=== PATIENT | female | born 1955 | race Caucasian/White ===

== ENCOUNTER 2022-10-09 07:34 | Observation (INO) | payer MEDICARE, OTHER ==
[2022-10-09 08:35] LABS: Hemoglobin 15.9 g/dL (12.0-16.0); Mean Corpuscular Hemoglobin 31.2 pg (27.0-31.0); Mean Corpuscular Volume 91.8 fl (78.0-98.0); Mean Platelet Volume 9.8 fL (7.4-10.4); Platelet Count 131 10x3/uL (130-400); RBC Distribution Width 12.2 % (11.5-14.5); White Blood Cell (WBC) Count 6.4 10x3/uL (4.8-10.8)
[2022-10-09 08:53] LABS: ALT (SGPT) 32 U/L (8-55); AST (SGOT) 22 U/L (5-34); Albumin 4.2 g/dL (3.4-4.8); Alkaline Phosphatase 100 U/L (40-110); Anion Gap 18 mmol/L (10-20); BUN (Urea Nitrogen) 14 mg/dL (9.8-20.1); Bilirubin, Total 0.4 mg/dL (0.2-1.2); Calc. Creatinine Clearance 0 mL/min (70-130); Calcium 9.7 mg/dL (7.8-10.44); Carbon Dioxide 22 mmol/L (23-31); Chloride 107 mmol/L (98-107); Estimated GFR 75; Glucose 126 mg/dL (80-115); Potassium 4.3 mmol/L (3.5-5.1); Protein, Total 7.2 g/dL (5.8-8.1); Sodium 143 mmol/L (136-145)
[2022-10-09] MEDS ORDERED: Meclizine HCl 25 MG TAB ONE (08:58)
[2022-10-09] MEDS ORDERED: Promethazine 25 MG TAB ONE (08:58)
[2022-10-09 09:16] LABS: Band 1 % (5-11); Eosinophils 4 % (0-10); Lymphocytes 39 % (21-51); MDiff Complete? YES; Monocytes 5 % (0-10); Neutrophil 45 % (42-75); RBC Morphology Normal; Reactive Lymphocytes 5 % (0-10)
[2022-10-09 11:19] LABS: Bilirubin Negative (Negative); Blood, Urine Negative (Negative); Clarity Clear (Clear); Glucose, Urine (Dipstick) Normal (Negative); Ketone, Urine Negative (Negative); Leukocyte 75 Leu/uL (Negative); Nitrite Negative (Negative); Protein, Urine (Dipstick) Negative (Neg-Trace); RBC/HPF 0-3 HPF (0-3); Specific Gravity, Urine 1.011 (1.002-1.036); Urobilinogen Normal mg/dL (Less than 2)
[2022-10-09 11:21] LABS: Bacteria/HPF 1+ HPF (None Seen)
[2022-10-09] MEDS ORDERED: Acetaminophen 325 MG TAB PO PRN (11:51)
[2022-10-09] MEDS ORDERED: Ondansetron PF 4 MG/2 ML Vial IVP PRN (11:51)
[2022-10-09] MEDS ORDERED: Ondansetron ODT 4 MG TAB SL PRN (11:51)
[2022-10-09 15:46] LABS: SARS-CoV-2 NAA Rapid Test Not Detected (NotDetected)
[2022-10-09 17:00] VITALS: BMI 37.5
[2022-10-09] MEDS ORDERED: Senokot S 8.6-50 MG TAB PO PRN (18:35)
[2022-10-09] MEDS ORDERED: Lorazepam 2 MG/ML VIAL SLOW IVP PRN (18:51)
[2022-10-09] MEDS: Meclizine HCl 12.5 MG TAB PO PRN (21:15)
[2022-10-09] MEDS ORDERED: Lisinopril 2.5 MG TAB PO SCH (22:45)
[2022-10-09] MEDS ORDERED: Ibuprofen 200 MG TAB PO SCH (22:45)
[2022-10-09] MEDS ORDERED: Loratadine 10 MG TAB PO SCH (22:45)
[2022-10-10 05:54] LABS: #Basophils 0.1 thou/uL (0.0-0.2); #Eosinphils 0.1 thou/uL (0.0-0.7); #Lymphocytes 2.4 thou/uL (1.20-3.40); #Monocytes 0.6 thou/uL (0.11-0.59); #Neutrophils 3.5 thou/uL (1.40-6.50); %Basophils 1.1 % (0.0-1.0); %Eosinophils 1.8 % (0.0-10.0); %Lymphocytes 35.9 % (21.0-51.0); %Monocytes 8.7 % (0.0-10.0); %Neutrophils 52.5 % (42.0-75.0); Hemoglobin 14.2 g/dL (12.0-16.0); Mean Corpuscular HGB CONC 33.8 g/dL (32.0-36.0); Mean Corpuscular Hemoglobin 31.1 pg (27.0-31.0); Mean Platelet Volume 7.9 fL (7.4-10.4); Platelet Count 234 10x3/uL (130-400); RBC Distribution Width 12.1 % (11.5-14.5); Red Blood Cell (RBC) Count 4.57 mill/uL (4.20-5.40); White Blood Cell (WBC) Count 6.6 10x3/uL (4.8-10.8)
[2022-10-10 06:05] LABS: Anion Gap 10 mmol/L (10-20); BUN (Urea Nitrogen) 11 mg/dL (9.8-20.1); Calc. Creatinine Clearance 125 mL/min (70-130); Carbon Dioxide 24 mmol/L (23-31); Chloride 110 mmol/L (98-107); Estimated GFR 89; Glucose 92 mg/dL (80-115); Sodium 140 mmol/L (136-145)
[2022-10-10] MEDS: Meclizine HCl 12.5 MG TAB PO PRN ×2 (07:08→14:33)
[2022-10-10 08:05] VITALS: BP 140/66
[2022-10-10] MEDS ORDERED: cefTRIAXone\\ROCEPHIN 2 GM in Sodium Chloride 0.9% 100 ML IVPB SCH (12:00)
[2022-10-10 13:13] VITALS: TEMP 98.5
[2022-10-10] MEDS ORDERED: Lisinopril 2.5 MG TAB PO SCH (21:00)
[2022-10-10] MEDS ORDERED: Ibuprofen 200 MG TAB PO SCH (21:00)
[2022-10-10] MEDS ORDERED: Loratadine 10 MG TAB PO SCH (21:00)
== END 2022-10-10 15:00 | disposition home or self-care (01) ==
LOC: ERS 07:34 → ERHOLD 12:19 → NEURO 16:11
PROVIDERS: ADMIT Hospitalist; ATTEND Family Medicine
DX: R42 Dizziness and giddiness (principal); N39.0 Urinary tract infection, site not specified; M16.9 Osteoarthritis of hip, unspecified; I10 Essential (primary) hypertension; E78.5 Hyperlipidemia, unspecified; Z79.899 Other long term (current) drug therapy; Z20.822 Contact with and (suspected) exposure to COVID-19
CPT/HCPCS: 70450; 70551; 71045; 80048; 80053; 83880; 84484; 85025 ×2; 93005; 96361; 96372; 96374; 99285; G0378 ×3; U0002; 36415; 81003; 81015; 96360; J0696; J1650; J3490; Q0169